=== PATIENT | female | born 1990 | race Caucasian/White ===

== ENCOUNTER → 2018-06-20 | Outpatient (CLI) | payer BC, OTHER ==
[~2018-06-20] MED LIST: ETHI1TAB49 PO; NORG1TAB74 PO
--- NOTE | 2018-06-28 10:33 | RADIOLOGY IMAGING REPORT ---
FACILITY: [facility] - [place] PATIENT NAME: LISS SOLORIO : [id number] MR: [id number] V: [id number] EXAM DATE: [id number] ORDERING PHYSICIAN: CONNER STARK TECHNOLOGIST: Tee Alejo RDMS, NELY PROCEDURE:US BILATERAL BREAST COMPARISON:None. INDICATIONS:Bilateral breast pain FINDINGS: Left breast: Ultrasound image demonstrate normal appearance of a saline breast implant. There is no evidence of leak. Soft tissues and breast tissues appear normal. Right breast: Normal appearance of a saline breast implant is seen. There is no suspicious mass. DIAGNOSTIC CATEGORY 1--NEGATIVE. RECOMMENDATIONS: CLINICAL EVALUATION. IMPRESSION: BIRADS 1: Negative. Normal Right and Left breast Ultrasound with bilateral saline implants. No further imaging is recommended. Dictated by: Karan Sheffield M.D. on 06/20/2018 at 17:22 Transcribed by: MARCO on 06/21/2018 at 11:27 Approved by: Karan Sheffield M.D. on 06/28/2018 at 10:32 [facility]
== END ==
LOC: US 03:58
PROVIDERS: ATTEND Physician Assistant
DX: N64.4 Mastodynia (principal); Z98.82 Breast implant status

== ENCOUNTER → 2019-01-17 | Outpatient (CLI) | payer OTHER ==
--- NOTE | 2019-01-18 11:10 | RADIOLOGY IMAGING REPORT ---
FACILITY: [facility] - [place] PATIENT NAME: LISS SOLORIO : [id number] MR: [id number] V: [id number] EXAM DATE: [id number] ORDERING PHYSICIAN: MOHINDER ALFARO TECHNOLOGIST: Tee Alejo RDMS, NELY PROCEDURE:US LEFT BREAST COMPLETE COMPARISON:02/03/17. INDICATIONS:Change in size or Left breast which appears smaller than the Right. Patient has saline implants. AREAS SCANNED: The entire Left breast was imaged. FINDINGS: The patient's Left breast implant was imaged with no evidence of implant rupture or leakage. No scooby-implant fluid is identified. The implant does appear slightly decreased in depth when compared to the prior study although the double lumen wall appears to be intact. DIAGNOSTIC CATEGORY 2--BENIGN FINDING. RECOMMENDATIONS: CLINICAL EVALUATION. IMPRESSION: BIRADS 2: Benign finding. The Left breast saline implant appears slightly decreased in depth when compared to the prior study although the double lumen wall does appear to be intact with no evidence of abnormal scooby-implant fluid. Clinical follow-up recommended. Dictated by: Gabbie Woods M.D. on 01/18/2019 at 8:24 Transcribed by: MARCO on 01/18/2019 at 10:58 Approved by: Gabbie Woods M.D. on 01/18/2019 at 11:09 [facility]
== END ==
LOC: US 09:26
PROVIDERS: ATTEND Nurse Practitioner Family
DX: N64.89 Other specified disorders of breast (principal); Z98.82 Breast implant status